=== PATIENT | female | born 2005 ===

== ENCOUNTER 2024-01-18 08:07 | Outpatient (CLI) | payer OTHER, SELFPAY ==
--- NOTE | 2024-01-18 08:15 | FL_ITS ---
Patient: GREG ANSARI Facility:?[facility] Patient ID:?[id number] Site Patient ID:?[id number]. Site :?2004 Study:?XRay-Hip Right INJECTION / TO READ-01/18/2024 10:18:36 AM Ordering Physician:NELSON Final Report: Indication: Right hip impingement syndrome Procedure : Informed consent was obtained. The site was marked. Time-out was performed. The skin of the right hip was cleansed with ChloraPrep. A sterile drape was placed. 8 cc of 1 percent lidocaine was administered for superficial anesthesia. Subsequently a 22 gauge spinal needle was introduced into the right hip joint under intermittent fluoroscopic guidance. Injection of 2 cc nonionic Omnipaque 240 contrast confirmed intra-articular location. Subsequently 11 cc of dilute gadolinium were injected. The needle was removed and hemostasis achieved with direct pressure. A dressing was placed. The patient tolerated the procedure well without immediate complication and was immediately sent to MRI for imaging. Total fluoroscopy time 37 seconds. Impression: Successful fluoroscopically guided right hip arthrogram for MRI. Dictated by Cliff Yoder MD @ 01/18/2024 12:25:18 PM Signed by:?Cliff Yoder MD @01/18/2024 12:25:18 PM (Electronic Signature)
--- NOTE | 2024-01-18 09:15 | MR_ITS ---
[address] [address] Phone:?[phone] Fax:?[phone] Referring Physician Information: Jason Carroll M.D. [address] [facility] [address] Phone:?[phone] Fax:?[phone] Patient:Raffaele Portre D.O.B:?2005 Sex:?Female Phone:?[phone] [facility] MRN:?[id number] Exam Date:?01/18/2024 EXAM: MR ARTHROGRAM of the RIGHT HIP CLINICAL INFORMATION: Female, 18 years old, with right hip pain. INDICATION: Evaluate for hip impingement. PRIOR SURGERY: None reported. PLAIN FILMS: None available. COMPARISONS: No prior MRIs available. TECHNICAL INFORMATION: Exam performed after injection of gadolinium-based contrast into the right hip joint, reported separately. Using a 1.5T MR scanner: coronals: PD, T2, T1FS sagittals: PD, T2, T1FS axial obliques: PD axials: PDFS coronals of pelvis: T1, STIR SEDATION: None. CONTRAST: No intravenous contrast was administered. FINDINGS: Hip joint: Gadolinium-based contrast distends the hip joint, reflecting successful arthrography. No chondromalacia or focal full-thickness defect of the femoral head or acetabular articular cartilage. No intra-articular bodies. Labrum: Approximately 1.1 cm partial-thickness linear tearing of the anterosuperior labrum (oblique axial series 8 images 15-17; sagittal series 10 images 23-25). No paralabral cyst. Proximal femur: No femoral occult fracture, stress injury, marrow edema or osteonecrosis. Normal femoral head/neck junction offset. No fibrocystic change. No convincing femoral cam morphology. Based on oblique axial series 8 image 15 at approximately 1:30 o'clock anterosuperiorly, the maximum femoral alpha angle measures approximately 49?. Acetabulum: No subchondral cysts, periacetabular ossicles or marrow edema. Version: Normal acetabular anteversion. Coverage: Right lateral center edge (CE) angle measures approximately 23? (normal 25?-39?), midline coronal series 6 image 15, corrected for pelvic obliquity. Ligamentum teres: Ligamentum teres is intact and unremarkable. Iliofemoral ligament: The iliofemoral ligament is intact without thickening. Pelvis osseous structures: Sacrum: No stress/insufficiency fractures or marrow edema/pathology. Sacroiliac joints: No demonstrable sacroiliitis. Pubic rami: No stress/insufficiency fractures or marrow edema/pathology. Symphysis pubis: No evidence of osteitis pubis. Myotendinous structures: Gluteus abductors: No convincing insertional tendinopathy or tear of gluteus minimus or medius. Adductors: No demonstrable tendinopathy or strain/tear. Hamstrings: Intact semimembranosus, semitendinosus and biceps femoris tendons, without tendinopathy or tear. Flexors: Intact iliopsoas and rectus femoris, without strain/tear. External rotators: Intact, without demonstrable ischiofemoral impingement. Gluteal aponeurotic fascia and IT band: Unremarkable. Bursae: No demonstrable trochanteric, iliopsoas, or iliopectineal bursitis. Intrapelvic contents: Free fluid: No free fluid seen within the pelvis. Pelvic viscera: No discrete intrapelvic mass is identified. Lymph nodes: No lymphadenopathy by MRI size criteria. Neurovascular structures: No discrete cyst, mass or other compression upon the portions visualized of sciatic or femoral nerves. Lumbar spine:?The visualized portions of the lower lumbar spine are unremarkable. IMPRESSION: 1. Partial thickness linear tearing of the anterosuperior labrum measuring 1.1 cm. No paralabral cyst. 2. Mild acetabular dysplasia. No femoral cam morphology or acetabular retroversion. 3. No fracture or osseous stress reaction. 4. No full-thickness chondral defect or evidence of hip joint osteoarthritis. 5. No myotendinous abnormality. BC Electronically signed on 01/18/2024 12:21:00 PM by Sohail Maurice M.D.
== END 2024-01-18 08:08 | disposition home or self-care (01) ==
LOC: RAD 08:10
PROVIDERS: PCP Family Medicine; Visit Provider Family Medicine
DX: M25.551 Pain in right hip (principal); S73.191A Other sprain of right hip, initial encounter; M25.851 Other specified joint disorders, right hip
CPT/HCPCS: 27093; 73525; 73722; 77002; A9575; Q9966

== ENCOUNTER 2024-01-30 15:00 | Outpatient (RCR) | payer OTHER, SELFPAY | END 2024-02-14 09:57 | disposition home or self-care (01) | PROVIDERS: PCP Family Medicine; Visit Provider Family Medicine | DX: M25.851 Other specified joint disorders, right hip (principal); S73.191D Other sprain of right hip, subsequent encounter; Z51.89 Encounter for other specified aftercare | CPT/HCPCS: 97110; 97140; 97161 ==